=== PATIENT | female | born 1985 | race Caucasian/White ===

== ENCOUNTER → 2018-09-07 | Day surgery (SDC) | payer OTHER ==
[~2018-09-07] MED LIST: FENTANYL CITRATE/PF 100MCG/2 ML INJ ONE; LIDOCAINE HCL 2% LOCAL INJ 5 ML SDV VIAL INJ ONE; LISINOPRIL10 MG PO; MIDAZOLAM HCL 2 MG/2 ML VIAL ONE; PROPOFOL IV EMULSION 10 MG/ML 20 ML VIAL ONE
--- OUTSIDE RECORDS SUMMARY | 2018-09-07 09:41 | XMS REPORT ---
[facility] Address Unknown Phone Unavailable Care Team Providers Care Bulb Inspector Name Role Phone Unavailable Unavailable Payers Payer Name Policy Type Policy Number Effective Date Expiration Date Problems This patient has no known problems. Allergies, Adverse Reactions, Alerts Allergy Name Allergy Type Status Severity Reaction(s) Onset Date Inactive Date Treating Clinician Comments No Known Allergies DA Active U 2018-04-07 00:00:00 No Known Allergies DA Active U 2015-02-07 00:00:00 Medications This patient has no known medications. Results Test Description Test Time Test Comments Text Results Atomic Results Result Comments SURGICAL SPECIMENS 2018-04-15 09:00:00 RUN DATE: 04/15/18 [facility] *LIVE* PAGE 1 RUN TIME: 09 Specimen Inquiry RUN USER: INTERFACE PATIENT: CARLITA HAYES LOC: GIOVANNA U #: [id number] AGE/SX: 33/F ROOM: RE04/08/18[facility] DR: Luis Rosales MD : 84 BED: DIS: STATUS: [facility] TLOC: SPEC #: [id number] RECD: 04/09/18 STATUS: [facility] #: [id number] CHRISTEN: 04/09/18 [facility] DR: Luis Rosales MD ENTERED: 04/12/18 SP TYPE: SURG SPEC OTHR DR: Mandie Vidal MD ORDERED: LEVEL 4 CODES: [id number] - ENDOCERVIX [id number] - ENDOMETRIUM, NO COPIES TO: Luis Rosales MD [address] [place] [address] [phone] [email or web address] MD [address] [place] [address] [email or web address] PROCEDURES: GM LEVEL 4 (Incomplete) TISSUES: 1. ENDOMETRIUM, NOS - Endometrium curettings 2. ENDOCERVIX - Endocervix, curettings FINAL DIAGNOSIS Endometrium, curettings: Endometrial polyp; secretory changes. Endocervix, curettings: Mixed inflammation, no dysplasia or carcinoma seen. GROSS AND MICROSCOPIC GROSS EXAMINATION: Received in formalin and labeled endometrial curettings is a 2.8 cm aggregate of blood and white-yu tissue (A). Received in formalin labeled endocervical curettings is a 0.8 cm aggregate of mucinous material submitted (B). MICROSCOPIC EXAMINATION: Sections of the "Endometrium, curettings" reveal changes of an endometrial polyp. Polypoid tissue is present which contains endometrial glands and stroma. Thick walled blood vessels are present and no definite evidence of high-grade hyperplasia or carcinoma is identified in the polypoid structure. The glands show secretory changes. CONTINUED ON NEXT PAGE RUN DATE: 04/15/18 [facility] *LIVE* PAGE 2 RUN TIME: 09 Specimen Inquiry RUN USER: INTERFACE SPEC #: [id number] PATIENT: CARLITA HAYES ALAN #[id number] (Continued) GROSS AND MICROSCOPIC (Continued) Sections of the "Endocervix, curettings" reveal changes of endocervical glands and stroma with mixed inflammation and hemorrhage. No evidence of dysplasia or carcinoma is seen. POST-OP DIAGNOSIS None given PRE-OP DIAGNOSIS Abnormal uterine bleeding REVIEWED BY: VICENTE Signed SIGNATURE ON FILE Luis MlaloBrenda yates MD 04/15/18 0900 END OF REPORT HCG SERUM QUAL 2018-04-07 12:44:00 HCG SERUM QUAL (test code=HCGQL) SERUM NEGATIVE NEGATIVE CBC W/AUTO [id number] 12:24:00* Test Item Value Reference Range Comments WHITE BLOOD CELL (test code=WBC) 8.68 x10 3/uL 4.5-11.0 RED BLOOD CELL (test code=RBC) 4.21 x10 6/uL 3.54-5.02 HEMOGLOBIN (test code=HGB) 12.6 g/dL 11.0-15.0 HEMATOCRIT (test code=HCT) 37.0 % 33.0-45.0 MEAN CELL VOLUME (test code=MCV) 87.9 fL 81.0-99.0 MEAN CELL HGB (test code=MCH) 29.9 pg 27.0-33.0 MEAN CELL HGB CONCETRATION (test code=MCHC) 34.1 g/dL 33.0-37.0 RED CELL DISTRIBUTION WIDTH CV (test code=RDW) 13.4 % 11.5-14.5 RED CELL DISTRIBUTION WIDTH SD (test code=RDW-SD) 43.0 fL 37.0-54.0 PLATELET COUNT (test code=PLT) 276 x10 3/uL 150-400 MEAN PLATELET VOLUME (test code=MPV) 9.6 fL 7.0-9.0 NEUTROPHIL % (test code=NT%) 72.5 % 56.0-77.0 IMMATURE GRANULOCYTE % (test code=IG%) 0.7 % 0.0-2.0 LYMPHOCYTE % (test code=LY%) 18.4 % 14.0-32.0 MONOCYTE % (test code=MO%) 6.1 % 4.8-9.0 EOSINOPHIL % (test code=EO%) 1.8 % 0.3-3.7 BASOPHIL % (test code=BA%) 0.5 % 0.0-2.0 NUCLEATED RBC % (test code=NRBC%) 0.0 % 0-0 NEUTROPHIL # (test code=NT#) 6.29 x10 3/uL 2.0-7.6 IMMATURE GRANULOCYTE # (test code=IG#) 0.06 x10 3/uL 0.00-0.03 LYMPHOCYTE # (test code=LY#) 1.60 x10 3/uL 1.0-3.8 MONOCYTE # (test code=MO#) 0.53 x10 3/uL 0.1-0.8 EOSINOPHIL # (test code=EO#) 0.16 x10 3/uL 0.0-0.2 BASOPHIL # (test code=BA#) 0.04 x10 3/uL 0.0-0.2 NUCLEATED RBC # (test code=NRBC#) 0.00 x10 3/uL 0.0-0.1 MANUAL DIFF REQUIRED (test code=MDIFF) NO
[2018-09-07 12:00] VITALS: BP 147/89
--- NOTE | 2018-09-07 17:10 | Operative Report ---
DATE OF PROCEDURE: 09/07/2018 SURGEON: Zay Machuca MD PREOPERATIVE DIAGNOSIS: Chronic gastroesophageal reflux disease. POSTOPERATIVE DIAGNOSES: 1. Chronic gastroesophageal reflux disease. 2. Gastric polyp. PREOPERATIVE INDICATION: Assess for mucosal disease due to history of chronic GERD. PROCEDURE: EGD with biopsy (CPT 42913). ANESTHESIA: Monitor anesthesia care with propofol. ASSISTANTS: None. FLUIDS: As per Anesthesia. ESTIMATED BLOOD LOSS: Minimal. DRAINS: None. COMPLICATIONS: None. SPECIMENS: Gastric polyp. FINDINGS: Small gastric polyp at the lesser curvature of the stomach. GRAFTS: None. PROCEDURE IN DETAIL: The patient was brought to the endoscopy suite and was sedated with IV propofol. A preprocedure pause was performed identifying the patient, use of perioperative antibiotics, intended procedure, and staff surgeon. The endoscope was introduced through the oropharynx and guided to the 2nd portion of the duodenum. No duodenal or esophageal abnormalities were noted. There was a small gastric polyp, which was biopsied with cold forceps and sent to pathology. Prior to removing the endoscope, the stomach was desufflated. The patient tolerated the procedure well. Zay Machuca MD [facility] /[id number]
== END | disposition home or self-care (01) ==
LOC: OR 09:31
PROVIDERS: ATTEND Surgery
DX: K21.9 Gastro-esophageal reflux disease without esophagitis (principal); Z01.810 Encounter for preprocedural cardiovascular examination; I10 Essential (primary) hypertension; Z68.36 Body mass index [BMI] 36.0-36.9, adult; E66.01 Morbid (severe) obesity due to excess calories; K31.7 Polyp of stomach and duodenum
CPT/HCPCS: 43239; 88305; 88312; 93005; J2001; J2250; J2704; J3010

== ENCOUNTER 2019-02-08 05:16 | Inpatient (IN) | payer OTHER ==
[~2019-02-08] VITALS: Ht 170.2 cm; Wt 99.8 kg
[~2019-02-08 05:16] MED LIST changes: -FENTANYL CITRATE/PF 100MCG/2 ML INJ ONE; -LIDOCAINE HCL 2% LOCAL INJ 5 ML SDV VIAL INJ ONE; -MIDAZOLAM HCL 2 MG/2 ML VIAL ONE; -PROPOFOL IV EMULSION 10 MG/ML 20 ML VIAL ONE
[2019-02-08] MEDS ORDERED: LISINOPRIL10 MG PO (05:53)
[2019-02-08] MEDS ORDERED: CEFAZOLIN SOD 1 GM/NS 50ML 100 ML IV ONE (06:15)
[2019-02-08] MEDS ORDERED: BUPIVACAINE 0.25% 30ML SDV INJ ONE (06:28)
[2019-02-08] MEDS ORDERED: SODIUM CHLORIDE 0.9% 1000ML 1,000 ML IV SCH (07:34)
[2019-02-08] MEDS ORDERED: ONDANSETRON HCL INJ 2MG/ML 2ML 2 MG/ML VIAL IV PRN (07:45)
[2019-02-08] MEDS ORDERED: SCOPOLAMINE 1.5 MG PATCH TOP SCH (07:45)
[2019-02-08] MEDS ORDERED: MORPHINE SULFATE 2 MG/ML SYR 1ML IV PRN (07:45)
[2019-02-08] MEDS ORDERED: METOCLOPRAMIDE HCL 10 MG/2ML VIAL ONE (08:55)
--- NOTE | 2019-02-08 09:21 | NUR ---
RECEIVED PATIENT FROM PACU. PATIENT A/O X3, EVEN RESPIRATIONS ON RA. LUNG SOUNDS CLEAR TO AUSCULTATION. 4 TROCAR SITES TO ABDOMEN. JEAN PIERRE HOSE AND SCD'S IN PLACE. NO NAUSEA AT THIS TIME. LEFT HAND 22 GAUGE IV INTACT/PATENT. ORIENTED PATIENT TO ROOM AND CALL LIGHT. BED LOW, WHEELS LOCKED, SIDE RAILS X2. CALL LIGHT IN REACH WILL CONTINUE TO MONITOR PATIENT.
[2019-02-08] MEDS ORDERED: SODIUM CHLORIDE 0.9% 1000ML 1,000 ML ONE (09:55)
[2019-02-08 10:00] VITALS: BP 180/107
[2019-02-08 10:06] VITALS: BP 180/107
[2019-02-08 10:10] VITALS: BP 180/107
--- NOTE | 2019-02-08 10:19 | NUR ---
PATIENT HAS VOIDED SINCE SURGERY.
--- NOTE | 2019-02-08 11:23 | History and Physical ---
CHIEF COMPLAINT: "I had weight loss surgery today." HISTORY OF PRESENT ILLNESS: This is a 34-year-old white woman, who was admitted to [facility] with diagnosis of obesity, BMI 34, complicating underlying hypertension. This patient was admitted for elective bariatric surgery namely laparoscopic sleeve gastrectomy, which she underwent today. Surgery performed by Dr. Zay Machuca. The patient voices no complaints. REVIEW OF SYSTEMS: GENERAL: Weight has been stable. No fever or chills. HEENT: No headaches. No vision changes. CARDIOVASCULAR/RESPIRATORY: No chest pain. No shortness of breath. No cough. GI: Slight abdominal pain with minimal nausea, but no vomiting. : Damon catheter has been removed. NEUROMUSCULAR: No limb weakness or numbness. ALLERGIES: NO KNOWN DRUG ALLERGIES. PAST MEDICAL HISTORY: 1. Hypertension. 2. Obesity. MEDICATIONS: Lisinopril 30 mg daily. PAST SURGICAL HISTORY: 1. Laparoscopic sleeve gastrectomy today. 2. Laparoscopic cholecystectomy. 3. section three times. 4. Total abdominal hysterectomy with bilateral salpingo-oophorectomy. SOCIAL HISTORY: This woman is , lives with her . She is a homemaker. No history of tobacco or alcohol use. FAMILY HISTORY: Multiple family members with hypertension and type 2 diabetes mellitus. PHYSICAL EXAMINATION: GENERAL: She is awake, alert, and fully oriented. She is pleasant and cooperative on exam. She has a flat affect. Her mother, father and are at bedside. VITAL SIGNS: Height is 5 feet 7 inches, weight 220 pounds, BMI 34. Blood pressure is 108/110, pulse is 82, respiratory rate 22, temperature 98.9, oxygen saturation is 97% on room air. INTEGUMENT: Skin is warm dry. No pallor, jaundice, or diaphoresis. The patient has numerous skin tags on her anterior neck. NECK: Supple. No evidence of jugular venous distention. CARDIOVASCULAR: Regular rate and rhythm. LUNGS: No rales. No rhonchi. No wheezes. ABDOMEN: Obese yet benign. The laparoscopic incisions are clean, dry, and intact. Bowel sounds are auscultated. EXTREMITIES: No edema or deformity. She is currently wearing sequential compression devices. NEUROLOGIC: Intact. No gross deficits appreciated. DIAGNOSES: 1. Obesity, BMI 34, complicating underlying hypertension. 2. Hypertensive heart disease. 3. Status post laparoscopic sleeve gastrectomy. PLAN: 1. Blood pressure monitoring in control. 2. Stop intravenous fluids because of the patient's elevated blood pressure. 3. Start enoxaparin for deep venous thrombosis and pulmonary thromboembolism prophylaxis. 4. Mobilize patient. 5. We will encourage incentive spirometer usage to help prevent atelectasis. I spent 35 minutes in the care of the patient. I would like to thank Dr. Zay Machuca for involving me in the care of this patient. MD KEN Cormier/BAILEY /[id number] MTDD
[2019-02-08 11:26] VITALS: BP 159/88
[2019-02-08] MEDS ORDERED: CLONIDINE HCL 0.1 MG TAB PO ONE (11:30)
[2019-02-08] MEDS ORDERED: FUROSEMIDE INJ 10 MG/ML 4 ML VIAL IV ONE (14:30)
--- NOTE | 2019-02-08 15:30 | NUR ---
PATIENT AMBULATING IN HALLWAY, STEADY GAIT.
[2019-02-08 15:38] VITALS: BP 158/91
--- NOTE | 2019-02-08 16:57 | NUR ---
RD received consult for bariatric diet education BARIATRIC DIET Learner(s): pt Barriers: none Cultural/Language Modifications: No cultural/language modifications noted. Readiness: acceptance Method: explanation/ discussion, handout Topics: Bariatric diet (clear liquid, full liquid, pureed) Understanding/Compliance: Pt verbalized understanding and did not have any questions
--- NOTE | 2019-02-08 19:05 | NUR ---
Patient visited in room during nursing rounds. Patient alert and oriented x3. No distress or discomfort noted. S/P Bariatric surgery today (02/08/19) with 4 trocar sites covered with dermabond. Sites appear clean and dry. Mother at bedside. Call up within reach.
[2019-02-08 20:00] VITALS: BP 136/83
[2019-02-08] MEDS: ENOXAPARIN SOD INJ 40 MG/0.4 ML SYR SC SCH (20:55)
--- NOTE | 2019-02-08 21:00 | NUR ---
Patient reported to nurse (Josh) that she was feeling some heartburn. Pt encouraged to sit up and immediately felt some relief. Will continue to monitor pt.
[2019-02-09] VITALS: BP 143/82
[2019-02-09 05:57] VITALS: BP 151/84
[2019-02-09 06:10] LABS: BASOPHILS % 0.2 % (0.0-1.0); EOSINOPHILS % 0.3 % (0.0-6.0); HEMATOCRIT 40.1 % (34.2-44.1); HEMOGLOBIN 13.6 g/dL (12.0-16.0); LYMPHOCYTES % 17.2 % (18.0-39.1); MEAN CORPUSCULAR HEMOGLOBIN 29.5 pg (28-32); MEAN CORPUSCULAR HGB CONC 33.9 g/dL (31-35); MONOCYTES # (AUTO) 0.8 (0.2-0.8); NEUTROPHILS # (AUTO) 8.9 (2.1-6.9); PLATELET COUNT 278 x10e3/uL (140-360); RED BLOOD COUNT 4.61 x10e6/uL (3.6-5.1); RED CELL DISTRIBUTION WIDTH 13.4 % (11.7-14.4)
[2019-02-09 06:32] LABS: ALANINE AMINOTRANSFERASE 23 IU/L (0-55); ALBUMIN 4.6 g/dL (3.5-5.0); ALBUMIN/GLOBULIN RATIO 1.4 (0.8-2.0); ALKALINE PHOSPHATASE 37 IU/L (40-150); ANION GAP 15.6 mmol/L (8-16); BLOOD UREA NITROGEN 14 mg/dL (7-26); BUN/CREATININE RATIO 16 (6-25); CALCIUM 10.1 mg/dL (8.4-10.2); CARBON DIOXIDE 26 mmol/L (22-29); CHLORIDE 100 mmol/L (98-107); CREATININE, SERUM 0.89 mg/dL (0.57-1.11); EST GLOMERULAR FILTRATION RATE > 60 ML/MIN (60-); GLUCOSE 94 mg/dL (74-118); MAGNESIUM 2.2 MG/DL (1.3-2.1); PHOSPHORUS 3.3 MG/DL (2.3-4.7); POTASSIUM 3.6 mmol/L (3.5-5.1); SODIUM 138 mmol/L (136-145)
[2019-02-09] MEDS ORDERED: HYDROCODONE/APAP 7.5MG-325MG 1 EA TAB PO PRN (07:00)
--- NOTE | 2019-02-09 07:00 | NUR ---
RECEIVED PATIENT AWAKE RESTING IN BED NO S/S OF DISTRESS. BED LOW, WHEELS LOCKED, SIDE RAILS X2. CALL LIGHT IN REACH WILL CONTINUE TO MONITOR PATIENT.
--- NOTE | 2019-02-09 07:53 | NUR ---
Progress Note S: No complaints O: AF, VSS; labs reviewed General- no distress Abdomen- soft, incisions c/d/i A/P: POD 1, s/p Lap sleeve gastrectomy -Clears, ambulate, IS, OOB to chair -Diet instructions given -F/u in 3 weeks with me
[2019-02-09 08:46] VITALS: BP 146/74
[2019-02-09] MEDS: ENOXAPARIN SOD INJ 40 MG/0.4 ML SYR SC SCH (08:58)
[2019-02-09 09:06] VITALS: BP 146/74
--- NOTE | 2019-02-09 09:41 | Discharge Summary ---
ADMIT DIAGNOSES: 1. Obesity, BMI 34, complicating underlying hypertension. 2. Hypertensive heart disease. DISCHARGE DIAGNOSES: 1. Status post laparoscopic sleeve gastrectomy. 2. Obesity, BMI 34, complicating underlying hypertension. 3. Hypertensive heart disease. HOSPITAL COURSE: This is a 34-year-old white woman, who was admitted to [facility] with diagnosis of obesity, BMI 34, complicating underlying hypertension. During this hospitalization, the patient underwent successful laparoscopic sleeve gastrectomy that was performed by her bariatric surgeon, namely Dr. Zay Machuca. The patient tolerated this procedure quite well. Her brief hospitalization was unremarkable. On discharge, she was tolerating a clear liquid diet. DISCHARGE MEDICATIONS: 1. Lisinopril 30 mg daily. 2. Tylenol No. 3 one pill every 4 hours p.r.n. pain, 25 prescribed, no refills. 3. Zofran 8 mg p.o. b.i.d. p.r.n. nausea and vomiting, 20 prescribed, one refill. FOLLOWUP INSTRUCTIONS: The patient instructed to follow up with Dr. Zay Machuca within two weeks and with her primary care physician within 2-3 weeks. MD KEN Cormier/BAILEY /[id number] cc: Zay Machuca MD
[2019-02-09] MEDS ORDERED: TYLENOL WITH C1 EACH PO (09:59)
[2019-02-09] MEDS ORDERED: ZOFRAN4 MG PO (09:59)
[2019-02-09 11:54] VITALS: BP 147/77
--- NOTE | 2019-02-09 12:00 | NUR ---
PATIENT TOLERATED CLEAR LIQUIDS FOR LUNCH, NO NAUSEA OR VOMITING.
--- NOTE | 2019-02-09 12:05 | NUR ---
REMOVED PATIENTS IV. CATHETER TIP INTACT AND PRESSURE DRESSING APPLIED.
--- NOTE | 2019-02-09 12:10 | NUR ---
PATIENT DISCHARGED FROM FACILITY. PATIENT GATHERED ALL PERSONAL BELONGINGS, DISCHARGE INSTRUCTIONS AND FOLLOW UP INFORMATION. PATIENT LEFT UNIT IN WHEELCHAIR AND WENT HOME VIA PRIVATE AUTO. NO SIGNS OF DISTRESS LEAVING FACILITY.
--- NOTE | 2019-02-10 05:23 | Operative Report ---
DATE OF PROCEDURE: SURGEON: Zay Machuca MD PREOPERATIVE DIAGNOSES: 1. Morbid obesity, BMI of 36. 2. Hypertension. 3. Obstructive sleep apnea. POSTOPERATIVE DIAGNOSES: 1. Morbid obesity, BMI of 36. 2. Hypertension. 3. Obstructive sleep apnea. PREOPERATIVE INDICATION: Treat disease, prevent complications related to comorbid conditions of obesity. PROCEDURE: Laparoscopic vertical sleeve gastrectomy. ANESTHESIA: General. ROUGHER HELPER: Roly Lipscomb, surgical appliances salesperson (needed due to complexity of case). FLUIDS: 500 mL of crystalloid. ESTIMATED BLOOD LOSS: 10 mL. DRAINS: None. COMPLICATIONS: None. SPECIMENS: Partial stomach. GRAFTS: None. FINDINGS: 1. Normal upper GI anatomy. 2. Negative intraoperative leak test. PROCEDURE IN DETAIL: The patient was brought to the operating room and was intubated under general endotracheal anesthesia. She was sterilely prepped and draped in the usual fashion. A preprocedure pause was performed identifying the patient, use of perioperative antibiotics, intended procedure, and staff surgeon. Access was gained via a 5 mm left subcostal incision using a Veress needle. Abdomen was insufflated to a pressure of 15 mmHg pressure. Four additional trocars were placed in standard position. Liver retractor was used to expose the stomach and the hiatus. I then mobilized the greater curvature of stomach from about 3 cm proximal to the pyloric valve to the left jennifer of diaphragm using the [place] LigaSure device. We then placed a 32-Hungarian silastic bougie/suctioning device along the lesser curvature of the stomach. We then resected the greater curvature of the stomach with 5 firings of a 60 mm purple load Covidien stapling device. Once that was completed, we insufflated through the bougie and did a leak test, no leaks were identified, the bougie was then removed. Prior to removing it, the stomach was suctioned off. I then placed hemoclips on the staple line, where there were necessary and we removed the stomach through the right periumbilical port site. The port site was closed with 0 Vicryl suture using a Eber [place] technique in a [id number] fashion. We then desufflated the abdomen, removed the liver retractor, removed the trocars. We closed the incision sites with 4-0 Monocryl suture in a subcuticular fashion. Dermabond dressings were applied. A 0.25% bupivacaine was used both at the preperitoneal incision sites. The patient tolerated the procedure well. Type of wound is type 2, clean, contaminated. MD ANATOLIY Eugene/BAILEY /[id number]
--- OUTSIDE RECORDS SUMMARY | 2019-02-12 12:45 | XMS REPORT | Summary of Care ---
Author Author [facility] - [facility] Organization [facility] Address Unknown Phone Unavailable Care Team Providers Care Magnetometer Operator Name Role Phone Pcp, Patient Does Not Have A PCP Reason for Visit * Reason Comments New Evaluation Ear Pain Ear Problem hole in ear, last said it is big. Right ear Ear Infection Encounter Details Care Team Description Date Type Department Cheri Camacho [address] [facility] [id number] [place] [address] [phone] Acute infective otitis externa, right (Primary Dx); Otalgia of right ear 11/04/2018 Office Visit [facility]- [address] [address] Allergies No Known Allergiesdocumented as of this encounter (statuses as of 11/04/2018) Medications Not on filedocumented as of this encounter (statuses as of 11/04/2018) Active Problems Not on filedocumented as of this encounter (statuses as of 11/04/2018) Social History Date Tobacco Use Types Packs/Day Years Used Never Assessed Sex Assigned at Date Recorded Not on file Industry Job Start Date Occupation Not on file Not on file Not on file Travel End Travel History Travel Start No recent travel history available. documented as of this encounter Last Filed Vital Signs Reading Time Taken Comments Vital Sign - - Blood Pressure - - Pulse - - Temperature - - Respiratory Rate - - Oxygen Saturation - - Inhaled Oxygen Concentration 104.7 kg (230 lb 14.4 oz) 11/04/2018 8:58 AM CDT Weight - - Height - - Body Mass Index documented in this encounter Progress Notes * Cheri Camacho - 11/04/2018 9:15 AM CDT Name: Mili Rebolledo MR No: [id number] Provider: Cheri Camacho MD Date: 11/04/2018 Chief Complaint: hole in right ear History of Present Illness: Mili Rebolledo is a 33 year old female seen today for evaluation of hole in right ear. Pt reports ear pain on 10/10/18 the right ear. She states she saw a doctor and couldn't examine her ear because it was swollen shut. Pt states she went olnnie k to the doctor and she gave her antibiotics. Pt reports swimmer ear as a child. Current medications reported: non History of Swimmers ear Denies dizziness or allergies to any drugs. Past Medical Hx: History reviewed. No pertinent past medical history. Past Surgical Hx: History reviewed. No pertinent surgical history. Family History: History reviewed. No pertinent family history. Social History: Social History Occupational History Not on file Tobacco Use Smoking status: Not on file Substance and Sexual Activity Alcohol use: Not on file Drug use: Not on file Sexual activity: Not on file Medications: No current outpatient medications on file. Allergies to Meds: Patient has no known allergies. Review of systems: CONSTITUTIONAL: Negative EYES: Negative ENT: Hole in ear CARDIOVASCULAR: Negative RESPIRATORY: Negative GASTROINTESTINAL: Negative GENITOURINARY: Negative MUSCULOSKELETAL: Negative SKIN: Negative NEUROLOGICAL: Negative PSYCHIATRIC: Negative ENDOCRINE: Negative HEMATOLOGIC/ LYMPHATIC: Negative ALLERGIC/ IMMUNOLOGIC: negative Physical Exam: Wt 230 lb 14.4 oz (104.7 kg) CONSTITUTIONAL:No acute distress EYES:Extraocular movements intacts, no irritation EARS, NOSE, MOUTH, AND THROAT: Otoscopic Examination: RIGHT: Ear canal: Normal; Tympanic Membrane: scar Normal; Mobility: Normal Mo bility. LEFT: Ear canal: Normal; Tympanic Membrane: Normal; Mobility: Normal Mobility . External Ears: Normal pinna bilaterally External Nose: No deformity Nasal Exam: Allergies Normal septum and turbinates Oral Exam: No lesions Lips, Teeth, and Gums: Unremarkable, no lesions Larynx: Voice normal. No direct visualization, Tonsils 2+ Face: No lesions. TMJ joints not examinedCARDIOVASCULAR:Extremities were warm . RESPIRATORY:There was normal chest expansion SKIN:No lesions of the head and neck NEUROLOGICAL:Grossly intact PSYCHIATRIC: Normal Affect HEMATOLOGICAL/ LYMPHATIC:No lymphadenopathy or masses of the neck Tuning fork: Rinne R ear AC>BC with 128Hz, 512Hz. Data Reviewed: Medical: None Radiology: None Laboratory: None Audiology: None Procedure: Binocular Microscopy, right ear: Binocular microscopy was performed of right ears for better visualization of the tympanic membranes. Debris was removed with a combination of Twyla suctions , ring curette and alligator instruments as needed. After removal of the cerum en: Right: No perforation. Old scar visible, dry. Mili Rebolledo tolerated the procedure well without any complications. Assessment and Plan: Mili Rebolledo is a 33 year old female seen today for evaluation of hole in right ear. Pt reports ear pain on 10/10/18 the right ear. She states she saw a doctor and couldn't examine her ear because it was swollen shut. Pt states she went lonnie k to the doctor and she gave her antibiotics. Pt reports swimmer ear as a child. ICD-10-CM ICD-9-CM 1. Acute infective otitis externa, right H60.391 380.10 2. Otalgia of right ear H92.01 388.70 Plan: - right ear infection resolved. No intervention needed. -Return if any otorrhea or otalgia- Medications Given: (Patients allergies include: Patient has no known allerg ies.) None Follow Up: PRN Scribe's Attestation I, Sher Huizar am scribing for, and in the presence of, Cheri Camacho MD who performed the services described here-in. Sher Huizar, November 04, 2018, 8:59 AM Physician's Attestation Ann, Dr. Cheri Camacho MD, personally performed and ordered the services descr ibed in this documentation, as scribed by Sher Huizar, in my presence, and it is both accurate and complete. documented in this encounter Plan of Treatment Health Maintenance Due Date Last Done Comments VARICELLA VACCINES (1 of 01/28/1997 2 - 13+ 2-dose series) DTaP,Tdap,and Td Vaccines 01/28/2003 (1 - Tdap) PAP SMEAR 01/28/2005 INFLUENZA VACCINE (#1) 2018 PNEUMOCOCCAL 0-64 YEARS Aged Out No longer eligible based COMBINED SERIES on patient's age to complete this topic documented as of this encounter Results Not on filedocumented in this encounter Visit Diagnoses Diagnosis Acute infective otitis externa, right - Primary Otalgia of right ear Otalgia, unspecified documented in this encounter Insurance Type Payer Benefit Subscriber ID Effective Phone Address Plan / Dates Group O [employer] [facility] [id number] 2018-P resent documented as of this encounter
--- OUTSIDE RECORDS SUMMARY | 2019-02-12 12:45 | XMS REPORT | Summary of Care ---
Author Author [facility] - Health Organization [facility] - Health Address Unknown Phone Unavailable Care Team Providers Care Child Welfare Social Worker Name Role Phone Pcp, Patient Does Not Have A PCP Reason for Visit * Reason Comments New Evaluation Ear Pain Ear Problem hole in ear, last said it is big. Right ear Ear Infection Encounter Details Care Team Description Date Type Department Cheri Camacho [address] [facility] [id number] [place] [address] [phone] Acute infective otitis externa, right (Primary Dx); Otalgia of right ear 11/04/2018 Office Visit [facility]- [address] [address] Allergies No Known Allergiesdocumented as [...] AM CDT Name: Mili Rebolledo MR No: [id number] Provider: Cheri Camacho MD Date: 11/04/2018 Chief [...] Address Plan / Dates Group [facility] [id number] 2018-P resent documented as of this encounter
--- OUTSIDE RECORDS SUMMARY | 2019-02-12 12:45 | XMS REPORT ---
Author Author [facility] Address Unknown Phone Unavailable Care Team Providers Care Maintenance Of Way Supervisor Name Role Phone Unavailable Unavailable Payers Payer Name Policy Type Policy Number Effective Date Expiration Date Problems This patient has no known problems. Allergies, Adverse Reactions, Alerts Allergy Name Allergy Type Status Severity Reaction(s) Onset Date Inactive Date Treating Clinician Comments No Known Allergies DA Active U 2018-06-02 00:00:00 No Known Allergies DA Active U 2018-04-07 00:00:00 No Known Allergies DA Active U 2015-02-07 00:00:00 Medications This patient has no known medications. Results Test Description Test Time Test Comments Text Results Atomic Results Result Comments SURGICAL SPECIMENS 2018-06-08 08:20:00 RUN DATE: 06/08/18 [facility] *LIVE* PAGE 1 RUN TIME: 819 Specimen Inquiry RUN USER: INTERFACE PATIENT: ACRLITA HAYES LOC: BREANA U #: [id number] AGE/SX: 33/F ROOM: [facility] RE06/03/18REG DR: Luis Rosales MD : 84 BED: 1 DIS: 06/05/18 STATUS: DIS IN TLOC: SPEC #: [id number] RECD: 06/04/18 STATUS: EBONY REQ #: [id number] CHRISTEN: 06/04/[address] [facility] [address]: Luis Rosales MD ENTERED: 06/05/18 SP TYPE: SURG SPEC OTHR DR: Mandie Vidal MD ORDERED: GM LEVEL 4 CODES: [id number] - UTERUS, NOS [id number] - FALLOPIAN TUBE COPIES TO: Luis Rosales MD [address] [place] [phone] [email or web address] Mandie Vidal MD [address] [place] [address] [email or web address] PROCEDURES: GM LEVEL 4 (Incomplete) TISSUES: 1. UTERUS, NOS - Uterus, cervix, excision 2. FALLOPIAN TUBE, NOS - Fallopian tube, left, segment 3. FALLOPIAN TUBE, NOS - Fallopian tube, right, segment FINAL DIAGNOSIS Uterus, cervix, bilateral tubes (S pecimens 1-3), excision: Chronic cervicitis, squamous metaplasia; proliferative endometrium; paratubal cysts; bilateral fallopian tubes with no atypical cellular features. GROSS AND MICROSCOPIC GROSS EXAMINATION: Received in formalin labeled uterus, cervix is a 170 g 6.2 x 6 x 5.1 cm uterus with separate 3 cm in diameter 4.1 cm in length cervix with pink- yu ectocervix and 1.1 cm cervical os. The serosal surface is purple yu and smooth. The endometrium is yu and lush measuring up to 0.4 cm. The myometrium is pink-yu and trabeculated measuring up to 3.1 cm. Submitted (A)- (B) cervix (C)-(F) corpus uteri. Received in formalin labeled left fallopian tube is a 2.6 cm in length 1 cm in diameter portion of fallopian tube with attached smooth-walled cysts measuring up to 0.9 cm and fimbriated end (G). Received in formalin labeled right fallopian tube is a 2.7 cm in length 1 cm in diameter fallopian tube CONTINUED ON NEXT PAGE -------RUN DATE: 06/08/18 [facility] *LIVE* PAGE 2 RUN TIME: 0820 Specimen Inquiry RUN USER: INTERFACE SPEC #: [id number] PATIENT: CARLITA HAYES #[id number] (Continued) GROSS AND MICROSCOPIC (Continued) with fimbriated end (H). MICROSCOPIC EXAMINATION: The ectocervical mucosa has normal maturation. The endocervical mucosa has areas of squamous metaplasia and associated chronic inflammation. The endometrial glands are partially coiled with mitotic activity. The serosa shows fibrous adhesion. Both fallopian tubes are unremarkable. POST-OP DIAGNOSIS Abnormal uterine bleeding PRE-OP DIAGNOSIS Abnormal uterine bleeding Signed SIGNATURE ON FILE Luis MchataKvng DO 06/08/18 0820 END OF REPORT CBC W/AUTO DIFF 2018-06-04 07:37:00 WHITE BLOOD CELL (test code=WBC) 12.06 x10 3/uL 4.5-11.0 RED BLOOD CELL (test code=RBC) 3.39 x10 6/uL 3.54-5.02 HEMOGLOBIN (test code=HGB) 10.3 g/dL 11.0-15.0 HEMATOCRIT (test code=HCT) 30.8 % 33.0-45.0 MEAN CELL VOLUME (test code=MCV) 90.9 fL 81.0-99.0 MEAN CELL HGB (test code=MCH) 30.4 pg 27.0-33.0 MEAN CELL HGB CONCETRATION (test code=MCHC) 33.4 g/dL 33.0-37.0 RED CELL DISTRIBUTION WIDTH CV (test code=RDW) 14.4 % 11.5-14.5 RED CELL DISTRIBUTION WIDTH SD (test code=RDW-SD) 47.1 fL 37.0-54.0 PLATELET COUNT (test code=PLT) 248 x10 3/uL 150-400 MEAN PLATELET VOLUME (test code=MPV) 9.8 fL 7.0-9.0 NEUTROPHIL % (test code=NT%) 79.5 % 56.0-77.0 IMMATURE GRANULOCYTE % (test code=IG%) 0.5 % 0.0-2.0 LYMPHOCYTE % (test code=LY%) 12.1 % 14.0-32.0 MONOCYTE % (test code=MO%) 7.6 % 4.8-9.0 EOSINOPHIL % (test code=EO%) 0.2 % 0.3-3.7 BASOPHIL % (test code=BA%) 0.1 % 0.0-2.0 NUCLEATED RBC % (test code=NRBC%) 0.0 % 0-0 NEUTROPHIL # (test code=NT#) 9.59 x10 3/uL 2.0-7.6 IMMATURE GRANULOCYTE # (test code=IG#) 0.06 x10 3/uL 0.00-0.03 LYMPHOCYTE # (test code=LY#) 1.46 x10 3/uL 1.0-3.8 MONOCYTE # (test code=MO#) 0.92 x10 3/uL 0.1-0.8 EOSINOPHIL # (test code=EO#) 0.02 x10 3/uL 0.0-0.2 BASOPHIL # (test code=BA#) 0.01 x10 3/uL 0.0-0.2 NUCLEATED RBC # (test code=NRBC#) 0.00 x10 3/uL 0.0-0.1 MANUAL DIFF REQUIRED (test code=MDIFF) NO PROTHROMBIN [id number] 12:46:00* Test Item Value Reference Range Comments PROTHROMBIN TIME PATIENT (test code=PTP) 13.8 SECONDS 9.3-12.9 INTERNATIONAL NORMAL RATIO (test code=INR) 1.2 0.8-1.2 TARGET INR BY INDICATION Indication INR1. Prophylaxis of venous thrombosis 2.0 - 3.0 (orthopedic surgery), Prophylaxis of venous thrombosis (other than high-risk surgery), Treatment of Deep Vein Thrombosis/Pulmonary Embolism, Prevention of systemic embolism - Tissue heart valves, Acute Myocardial Infarction (to prevent systemic embolism), Valvular heart disease, Atrial Fibrillation, Bileaflet mechanical valve in aortic position.2. Mechanical prosthetic valves (high risk), 2.5 - 3.5 Presence of Lupus Anticoagulant or Antiphospholipid Antibodies, Prevention of systemic embolism - Acute Myocardial Infarction (to prevent recurrent infarct). THROMBOPLASTIN TIME [id number] 12:46:00* Test Item Value Reference Range Comments THROMBOPLASTIN TIME PARTIAL (test code=PTT) 32.7 Seconds 25.0-39.5 Therapeutic Range: 61.8-83.8 Sec Effective 03/24/2013 HCG SERUM [id number] 12:26:00* Test Item Value Reference Range Comments HCG SERUM QUAL (test code=HCGQL) SERUM NEGATIVE NEGATIVE CBC W/AUTO [id number] 11:51:00* Test Item Value Reference Range Comments WHITE BLOOD CELL (test code=WBC) 6.74 x10 3/uL 4.5-11.0 RED BLOOD CELL (test code=RBC) 3.87 x10 6/uL 3.54-5.02 HEMOGLOBIN (test code=HGB) 11.6 g/dL 11.0-15.0 HEMATOCRIT (test code=HCT) 34.3 % 33.0-45.0 MEAN CELL VOLUME (test code=MCV) 88.6 fL 81.0-99.0 MEAN CELL HGB (test code=MCH) 30.0 pg 27.0-33.0 MEAN CELL HGB CONCETRATION (test code=MCHC) 33.8 g/dL 33.0-37.0 RED CELL DISTRIBUTION WIDTH CV (test code=RDW) 13.6 % 11.5-14.5 RED CELL DISTRIBUTION WIDTH SD (test code=RDW-SD) 43.0 fL 37.0-54.0 PLATELET COUNT (test code=PLT) 246 x10 3/uL 150-400 MEAN PLATELET VOLUME (test code=MPV) 9.6 fL 7.0-9.0 NEUTROPHIL % (test code=NT%) 71.1 % 56.0-77.0 IMMATURE GRANULOCYTE % (test code=IG%) 0.6 % 0.0-2.0 LYMPHOCYTE % (test code=LY%) 20.6 % 14.0-32.0 MONOCYTE % (test code=MO%) 4.9 % 4.8-9.0 EOSINOPHIL % (test code=EO%) 2.4 % 0.3-3.7 BASOPHIL % (test code=BA%) 0.4 % 0.0-2.0 NUCLEATED RBC % (test code=NRBC%) 0.0 % 0-0 NEUTROPHIL # (test code=NT#) 4.79 x10 3/uL 2.0-7.6 IMMATURE GRANULOCYTE # (test code=IG#) 0.04 x10 3/uL 0.00-0.03 LYMPHOCYTE # (test code=LY#) 1.39 x10 3/uL 1.0-3.8 MONOCYTE # (test code=MO#) 0.33 x10 3/uL 0.1-0.8 EOSINOPHIL # (test code=EO#) 0.16 x10 3/uL 0.0-0.2 BASOPHIL # (test code=BA#) 0.03 x10 3/uL 0.0-0.2 NUCLEATED RBC # (test code=NRBC#) 0.00 x10 3/uL 0.0-0.1 MANUAL DIFF REQUIRED (test code=MDIFF) NO SURGICAL [id number] 09:00:00 RUN DATE: 04/15/18 [facility] *LIVE* PAGE 1 RUN TIME: 0900 Specimen Inqui ry RUN USER: INTERFACE PATIENT: CARLITA HAYES ACCT #: [id number] [facility] #: [id number] AGE/SX: 33/F [facility]OM[facility]: Luis Rosales MD : 84 BED: DIS: STATUS: [facility] TLOC: SPEC #: [id number] RECD: 04/09/18 STATUS: EBONY RE #: [id number] CHRISTEN: 04/09/[address] [facility] [address]: Luis Rosales MD ENTERED: 04/12/18 SP TYPE: SURG SPEC OTHR DR: Mandie Payan MD ORDERED: GM LEVEL 4 CODES: [id number] - ENDOCERVIX [id number] - E NDOMETRIUM, NO COPIES TO: Luis Rosales MD [address] [place] [phone] [email or web address] Mandie Vidal MD [address] [place] [address] [email or web address] health miami valley hospitalBe At One PROCEDURES: GM LEVEL 4 (Incomplete) TISSUES: 1. ENDOMETRI UM, NOS - Endometrium curettings 2. ENDOCERVIX - Endocervix, curettings FINAL DIAGNOSIS Endometrium, curettings: Endometrial polyp; secretory changes. Endocervix, curettings: Mixed inflammation, no dysplasia or car cinoma seen. GROSS AND MICROSCOPIC GROSS EXAMINATION: Received in formal in and labeled endometrial curettings is a 2.8 cm aggregate of blood and whit e-yu tissue (A). Received in formalin labeled endocervical c urettings is a 0.8 cm aggregate of mucinous material submitted (B). MICROSCOPIC EXAMINATION: Sections of the "Endomet rium, curettings" reveal changes of an endometrial polyp. Polypoid tissue is present which contains endometrial glands and stroma. Thick walled blood ve ssels are present and no definite evidence of high-grade hyperplasia or carci noma is identified in the polypoid structure. The glands show secretory heredia ges. CONTINUED ON NEXT PAGE --- ---------RUN DATE: 04/15/18 [facility] *LIVE* PAGE 2 RUN TIME: 0900 Specimen Inquiry RUN USER: INTERFACE SPEC #: [id number] PATIENT: CARLITA HAYES ROLANDO N #[id number] (Continued) GROSS AND MICROSCOPIC (Continued) Sections of the "Endocervix, curettings" reveal changes of endocervical glands and stroma with mixed inflammation and hemorrhage. No evidence of dysplasia or carcinoma is seen. POST-OP DIAGNOSIS None given PRE-OP DIAGNOSIS Abnormal uterine bleeding REVIEWED BY: CXW Signed SIG NATURE ON FILE Brenda Virk MD 04/15/18 0900 ------- ----- END OF R EPORT HCG SERUM [id number] 12:44:00* Test Item Value Reference Range Comments HCG SERUM QUAL (test code=HCGQL) SERUM NEGATIVE NEGATIVE CBC W/AUTO [id number] 12:24:00* Test Item Value Reference Range Comments [...] 0.0-0.1 MANUAL DIFF REQUIRED (test code=MDIFF) NO - US TRANSVAGINAL NON [id number] 09:11:00 Name: PEREZCARLITA [facility] : 1985 Age/S: 33 / F [address] [place] [address] Unit #: [id number] Loc: ROBERT Caruso [address] Phys: Luis Rosales MD Acct: [id number] Dis Date: Status: REG CLI PHONE #: [phone] Exam Date: 03/24/2018 0902 FAX #: [phone] Reason: DUB EXAMS: CPT CODE: [id number] [place] [id number] EXAM: US PELVIS TRANSABDOMINAL EXAM: US PELVIS TRANSVAGINAL DATE: 03/24/2018 8:27 AM INDICATION: DUB : 1985; Age: 33 years y/o Female COMPARISON: None. TECHNIQUE: Multiplanar grayscale and color Doppler ultrasound of the pelvis were obtained transabdominally and transvaginally. Transvaginal examination was performed for better evaluation of endometrium and adnexa. FINDINGS: Uterus/Myometrium: Size: 9.8 x 5.4 x 6.8 cm Echogenicity: Heter ogeneous Masses: Rounded hypoechoic lesion measuring 2.2 x 1.6 cm seen wit hin the lower uterine segment/cervix. Cervix: Nabothian cysts identi fied. Endometrium: Thickness: 0.7 cm Cysts/Masses: No ne. Right ovary: Size: 3.1 x 2.2 x 1.9 cm Cysts/Masses : None. Left ovary: Size: 2.7 x 3.1 x 2.5 cm Cysts/Ma sses: None. Adnexa: Normal. Free fluid: None. IMPRESSION: Rounded hypoechoic lesion measuring 2.2 x 1.6 cm is seen within the lower uterine segment/cervix. This may represent fi broid. PAGE 1 Signed Report (CONTINUED) Name: CARLITA PEREZ [facility] : 1985 Age/S: 33 / F [address] [place] [address] Unit #: [id number] Loc: [place] [address] Phys: Luis Rosales MD Acct: [id number] Dis Date: Status: REG CLI PHONE #: [phone] Exam Date: 03/24/2018 0902 FAX #: [phone] Reason: DUB EXAMS: CPT CODE: [id number] [place] [id number] <Continued> SL: [id number] at 0911 Reported and signed by: Eric Vu D.O. CC: Luis Rosales MD; Mandie Vidal MD Technologist: Christa Renae RDMS(BR)(AB) Trnscb Date/Time: 03/24/2018 (910) [email or web address] Orig Print D/T: S: 03/24/2018 (913) Probe: [id number] PAGE 2 Signed Report - US PELVIS [id number] 09:11:00 Name: CARLITA PEREZ [facility] : 1985 Age/S: 33 / F [address] [place] [address] Unit #: [id number] Loc: ROBERT Car[place] [address] Phys: Luis Rosales MD Acct: [id number] Dis Date: Status: REG CLI PHONE #: [phone] Exam Date: 03/24/2018901 FAX #: [phone] Reason: DUB EXAMS: CPT CODE: [id number] US PELVIS COMPLETE [id number] EXAM: US PELVIS TRANSABDOMINAL EXAM: US PELVIS TRANSVAGINAL DATE: 03/24/2018 8:27 AM INDICATION: DUB : 1985; Age: 33 years y/o Female COMPARISON: None. TECHNIQUE: Multiplanar grayscale and color Doppler ultrasound of the pelvis were obtained transabdominally and transvaginally. Transvaginal examination was performed for better evaluation of endometrium and adnexa. FINDINGS: Uterus/Myometrium: Size: 9.8 x 5.4 x 6.8 cm Echogenicity: Heterogeneous Masses: Rounded hypoechoic lesion measuring 2.2 x 1.6 cm seen within the lower uterine segment/cervix. Cervix: Nabothian cysts identified. Endometrium: Thickness: 0.7 cm Cysts/Masses: None. Right ovary: Size: 3.1 x 2.2 x 1.9 cm Cysts/Masses: None. Left ovary: Size: 2.7 x 3.1 x 2.5 cm Cysts/Masses: None. Adnexa: Normal. Free fluid: None. IMPRESSION: Rounded hypoechoic lesion measuring 2.2 x 1.6 cm is seen within the lower uterine segment/cervix. This may represent fibroid. PAGE 1 Signed Report (CONTINUED) Name: CARLITA PEREZ [facility] : 1985 Age/S: 33 / F [address] [place] [address] Unit #: [id number] Loc: ROBERT Caruso [address] Phys: Luis Rosales MD Acct: [id number] Dis Date: Status: REG CLI PHONE #: [phone] Exam Date: 03/24/2018901 FAX #: [phone] Reason: DUB EXAMS: CPT CODE: [id number] US PELVIS COMPLETE [id number] <Continued> SL: [id number] at 0911 Reported and signed by: Eric Vu D.O. CC: Luis Rosales MD; Mandie Vidal MD Technologist: Christa Renae RDMS(BR)(AB) Trnscb Date/Time: 03/24/2018 (910) [email or web address] Orig Print D/T: S: 03/24/2018 (0914) Probe: PAGE 2 Signed Report
== END 2019-02-09 12:10 | disposition home or self-care (01) | DRG 621 ==
LOC: OR 05:16 → MERGE 08:46 → PACU V 08:46 → MED/SURG 09:34
PROVIDERS: ADMIT Internal Medicine; ATTEND Internal Medicine
PROC: 0DB64Z3 Excision of Stomach, Percutaneous Endoscopic Approach, Vertical (ICD-10-PCS; principal; 2019-02-08 07:00)
DX: E66.01 Morbid (severe) obesity due to excess calories (principal); I11.9 Hypertensive heart disease without heart failure; Z68.36 Body mass index [BMI] 36.0-36.9, adult; G47.33 Obstructive sleep apnea (adult) (pediatric); Z82.49 Family history of ischemic heart disease and other diseases of the circulatory system; Z83.3 Family history of diabetes mellitus
CPT/HCPCS: 36415; 80053; 83735; 84100; 85025; J0690; J1650; J1940; J2405; J2765; J7030